=== PATIENT | female | born 1950 | race Caucasian/White ===

== ENCOUNTER 2019-10-20 10:01 | Emergency (ER) | payer OTHER ==
[~2019-10-20] VITALS: Ht 157.5 cm; Wt 68.0 kg
[~2019-10-20 10:01] MED LIST: BENAZEPRIL HCL10 MG; CALCIUM 600 +1 EAC9; FISH OIL 1,2001 EAC4; FLAXSEED OIL1000 M2; LEXAPRO 10 MG T10 M2; MAXZIDE 75-501 EACH; MULTI VITAMIN1 EACH; NORCO 5-325 TA1 EACH PO; PANTOPRAZOLE SO40 M1; ZOFRAN ODT4 MG PO
[2019-10-20] MEDS ORDERED: NORFLEX100 MG PO (11:52)
[2019-10-20 12:28] VITALS: BP 135/71
== END 2019-10-20 12:35 | disposition home or self-care (01) ==
LOC: ER 10:01
DX: S16.1XXA Strain of muscle, fascia and tendon at neck level, initial encounter (principal); S00.83XA Contusion of other part of head, initial encounter; I10 Essential (primary) hypertension; Z90.49 Acquired absence of other specified parts of digestive tract; W01.198A Fall on same level from slipping, tripping and stumbling with subsequent striking against other object, initial encounter; Y93.89 Activity, other specified; Y92.89 Other specified places as the place of occurrence of the external cause; Y99.8 Other external cause status